=== PATIENT | male | born 1940 | race Caucasian/White ===

== ENCOUNTER 2022-12-02 15:02 | Outpatient (CLI) | payer MEDICARE, SELFPAY ==
--- NOTE | 2022-12-02 15:30 | CRLHL7_ITS ---
For Patients: As a result of the Century Cures Act, medical imaging exams and procedure reports are released immediately into your electronic medical record. You may view this report before your referring provider. If you have questions, please contact your health care provider. INDICATION: Elevated D-dimer.. TECHNIQUE: CT chest PE was acquired with 95 cc Isovue 370 IV contrast. COMPARISON: None. FINDINGS: Heart and vasculature: Contrast opacification of the pulmonary arterial tree is adequate. No sign of pulmonary embolism. Heart size is mildly enlarged. Thoracic aorta and pulmonary artery are normal in caliber.Calcific atherosclerosis of the coronary arteries. Lungs and pleura: 14 millimeter nodule in the right lower lobe. Moderate emphysematous changes bilaterally. Diffuse bronchial wall thickening. Ground-glass opacities noted within the lower right upper lobe as well as right lower lobe and in the right middle lobe peripherally. Additional pleural based nodule in the right middle lobe measuring approximately 7 millimeters. No pleural effusions, pleural thickening, or pneumothorax. Lymph nodes/mediastinum: Right mediastinal adenopathy measuring 35 x 28 millimeters. Mildly prominent mediastinal lymph nodes. Chest wall: No masses. Upper abdomen: Small hiatal hernia. Moderate to severe calcific atherosclerosis of the visualized aorta. Mild atrophy of the bilateral kidneys. Bones: Unremarkable for age. IMPRESSION: No pulmonary embolism identified. Ground-glass opacities in the right upper and lower lobes concerning for infectious/inflammatory process. 13 millimeter nodule in the right lower lobe, indeterminate. Given significant lymphadenopathy in the right hilum, consider further evaluation with PET-CT or biopsy. At a minimum three-month CT of the chest recommended to ensure stability. Please note that all CT scans at this facility use dose modulation, iterative reconstruction, and/or weight-based dosing when appropriate to reduce radiation dose to as low as reasonably achievable. Dictated by Afia Gay MD @ 12/02/2022 5:18:39 PM (Electronically Signed)
[2022-12-02 15:46] LABS: Creatinine* 1.4 mg/dL (0.5-1.5); Estimated Glomerular Filt Rate 50 ml/min
== END 2022-12-02 15:03 | disposition home or self-care (01) ==
LOC: CT 15:08
PROVIDERS: PCP Student in an Organized Health Care Education/Training Program; Visit Provider Student in an Organized Health Care Education/Training Program
DX: R79.89 Other specified abnormal findings of blood chemistry (principal); R91.8 Other nonspecific abnormal finding of lung field
CPT/HCPCS: 36415; 71260; 82565; Q9967

== ENCOUNTER 2023-01-25 18:46 | Emergency (ER) | payer MEDICARE, SELFPAY ==
[2023-01-25 19:01] VITALS: BP 151/114; PULSE 59; RESP 18; TEMP 36.6; O2SAT 95; BMI 25.5
[2023-01-25 19:20] VITALS: PULSE 49; O2SAT 97
[2023-01-25 19:30] VITALS: PULSE 50; O2SAT 96
[2023-01-25 19:32] VITALS: BP 142/91; PULSE 41; O2SAT 93
[2023-01-25 19:45] VITALS: PULSE 50; O2SAT 97
[2023-01-25 19:56] VITALS: BP 143/88
--- NOTE | 2023-01-25 22:54 | ED.GENADULT ---
HPI - General Adult General Chief complaint: Arrhythmia/Palpitations Stated complaint: Irregular Pulse Possible Time Seen by Provider: 01/25/23 19:02 History of Present Illness HPI narrative: comes to ed with concerns of having an irregular rapid heartbeat while he was on a stationary bike (for exercise). the rate was varying from 80 -120s. thought he better get this checked out. did call [facility] triage nurse and was told to come here. denies any other symptoms. has hx of 2 ablations due to a fib. last one 09/2022. 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 82-year-old man presenting to the emergency department with intermittently rapid heart rate alternating from 80-120s per what he describes as some older heart rate monitor. Today he got on a stationary bike in anticipation of joining a bicycling club. Was otherwise asymptomatic. Not unusually short of breath. No chest pain. No lightheadedness. Does have a history of atrial fibrillation with a couple of ablations. Feeling well at this time. Just prior to my seeing him however he has placed a nicotine lozenge noting that he thought we probably would not want him to smoke here. He says the lozenges give him hiccups. Review of Systems Status of ROS: Reports: 6 or more systems reviewed and unremarkable except as noted in History and below PFSH PFS Social History Smoking Status: Current every day smoker Non-prescribed substance use: denies use Exam Narrative: Exam Narrative: Pleasantly conversant. NAD. Breathing easily at than his hiccups. This apparently is typical when he sucks on nicotine lozenges. Is also twitching or restless with his right shoulder in particular though affecting his upper body. He says this happens when he gets he thinks a little nervous. Lungs are clear. Heart in a generally regular rhythm though intermittently dropped beats. These appear to be consistent with what I see as PVCs on monitor. Asymptomatic. Lower extremities are well perfused without edema. Const: Vital Signs, click to edit/add: Vital Signs - 24 hr 01/25/23 19:01 01/25/23 19:20 01/25/23 19:30 Temperature 97.8 F Pulse Rate 49 L 50 L Pulse Rate [Pulse Oximeter] 59 L Respiratory Rate 18 Blood Pressure Blood Pressure [Le ft Upper Arm] 151/114 H Pulse Oximetry 95 97 96 Oxygen Delivery Me thod Room Air 01/25/23 19:32 01/25/23 19:45 01/25/23 19:56 Temperature Pulse Rate 41 L 50 L Pulse Rate [Pulse Oximeter] Respiratory Rate Blood Pressure 142/91 H 143/88 H Blood Pressure [Le ft Upper Arm] Pulse Oximetry 93 97 Oxygen Delivery Me thod Documenting provider has reviewed patient's vital signs: yes Course Vital Signs Vital signs: Initial Vital Signs Temperature 97.8 F 01/25/23 19:01 Temperature Source Temporal Artery Scan 01/25/23 19:01 Pulse Rate 59 L 01/25/23 19:01 Pulse Rhythm Regular 01/25/23 19:01 Respiratory Rate 18 01/25/23 19:01 Blood Pressure 151/114 H 01/25/23 19:01 Blood Pressure Mean 126 H 01/25/23 19:01 Blood Pressure Position Supine 01/25/23 19:01 Pulse Oximetry 95 01/25/23 19:01 Oxygen Delivery Method Room Air 01/25/23 19:01 Vital Signs Temperature 97.8 F 01/25/23 19:01 Pulse Rate 59 L 01/25/23 19:01 Respiratory Rate 18 01/25/23 19:01 Blood Pressure 151/114 H 01/25/23 19:01 Pulse Oximetry 95 01/25/23 19:01 Oxygen Delivery Method Room Air 01/25/23 19:01 Temperature 97.8 F 01/25/23 19:01 Pulse Rate 50 L 01/25/23 19:45 Respiratory Rate 18 01/25/23 19:01 Blood Pressure 143/88 H 01/25/23 19:56 Pulse Oximetry 97 01/25/23 19:45 Oxygen Delivery Method Room Air 01/25/23 19:01 Medical Decision Making MDM Narrative Medical decision making narrative: In a normal sinus rhythm at his usually low rate at this point. He does take metoprolol. There are frequent PVCs. Describes himself as generally a little frustrated that is more winded; I take this to mean over the years, in efforts at exercise. He had blood apparently including chemistries a few weeks ago that was normal. Just had his INR done which was in goal. Not sure the further intervention is necessary here. He intends to contact his drug enforcement agent in the morning. See patient discharge plan Medical Records Medical records reviewed: Yes I reviewed the patient's medical records ECG Data Attestation: I personally reviewed and interpreted this ECG as follows: (Sinus rhythm at a rate of 63. First degree AV block. PVCs are noted as well) Discharge Plan Discharge Clinical Impression: Heart palpitations, Frequent PVCs Patient Disposition: Home w/ Parent or Adult Condition: Stable Additional Instructions: Continue to focus on staying well hydrated. I do not think you need to alter your physical activity that you were attempting today. You are on some medications that might contribute to feeling like you can't quite get up to speed or get enough air. You can discuss this further with your drug enforcement agent. I would call to them tomorrow to discuss these events. Return for increasing and persistent shortness of breath, persistently rapid heart rate, lightheadedness was, chest pain. Follow Up/Referrals: TRAVIS PERLA DO [Primary Care Provider] - Stand Alone Forms: [employer] Info Instructions
== END 2023-01-25 20:02 | disposition home or self-care (01) ==
LOC: ED 19:52
PROVIDERS: Emergency Provider Family Medicine; PCP Student in an Organized Health Care Education/Training Program
DX: R00.2 Palpitations (principal); I49.3 Ventricular premature depolarization
CPT/HCPCS: 99283; 99284

== ENCOUNTER 2025-04-04 11:15 | Outpatient (RCR) | payer MEDICARE, SELFPAY | END 2025-07-21 14:21 | disposition home or self-care (01) | PROVIDERS: PCP Student in an Organized Health Care Education/Training Program; Visit Provider Family Medicine | DX: R26.89 Other abnormalities of gait and mobility (principal); Z51.89 Encounter for other specified aftercare | CPT/HCPCS: 97110; 97112; 97161; 97530 ==